=== PATIENT | male | born 1945 | race Caucasian/White ===

== ENCOUNTER → 2025-05-29 06:56 | Outpatient (CLI) | payer MEDICARE, SELFPAY ==
--- NOTE | 2025-05-29 07:01 | DI.MRI.S_ITS ---
PROCEDURE: MR PELIS WO/W CON INDICATIONS: Colon cancer TECHNIQUE: Coronal HASTE, sagittal T2 FSE, axial T1 FSE, axial and coronal nonbreath-hold T2 FSE. Axial dynamic VIBE during administration of contrast. Post-contrast axial and coronal VIBE/2-D FLASH with fat saturation from the iliac crests to the symphysis. Optional diffusion weighted imaging and ADC may be performed. COMPARISON: [facility], CT, CT CHEST ABDOMEN PELVIS WITH CONTRAST, 05/09/2025, 11:19. FINDINGS: Image quality: Diagnostic Rectum: Morphology: Polypoid Clock face of tumor involvement: Semi circumferential, 3-12 o'clock Mucinous (high T2 signal): No Craniocaudal length: 4 cm Distance to anal verge: 5.5 cm Distance to top of sphincter complex/anorectal junction: 2.7 cm Relationship to anterior peritoneal reflection: Below Tumor at or below puborectalis sling: Above T staging: T2 vs. T3a. There is indistinctness of the muscularis layer at an area of tumor bulging at 3:00 (02/14, 12/31). If this is true extra muscularis involvement, CRM is 1.3 cm Pelvic organ involvement: None Regional lymph nodes (mesorectal, inguinal, iliac): 6 mm mesorectal lymph node on image 6/4 at 7:00, with mildly suspicious signal characteristics. There are a few other equivocal [place] lymph nodes, for example image 6/1 measuring 5 mm No findings suspicious for non regional lymph nodes enlarged by size criteria Other bowel and peritoneum: No bowel obstruction. Sequelae of BPH in the prostate. Unremarkable urinary bladder. Bones: There are degenerative osseous changes. IMPRESSION: T2 vs. T3a N1. A focal area of tumor bulging is seen at 3:00, with focal indistinctness of the muscularis layer. If this is true extra muscularis involvement, CRM is 1.3 cm Tumor is below the peritoneal reflection and above the sphincter complex. EMVI negative. Dictated by: Manas Reyes M.D. on 05/29/2025 at 16:04 Approved by: Manas Reyes M.D. on 05/29/2025 at 16:19
== END ==
LOC: MRI 06:59
PROVIDERS: PCP Physician Assistant; Referring Provider Physician Assistant; Visit Provider Internal Medicine
DX: C18.6 Malignant neoplasm of descending colon (principal); K62.89 Other specified diseases of anus and rectum; K63.1 Perforation of intestine (nontraumatic); K63.89 Other specified diseases of intestine
CPT/HCPCS: 72197; A9579